=== PATIENT | female | born 1950 | race Caucasian/White ===

== ENCOUNTER 2023-06-15 18:30 | Emergency (ER) | payer MEDICARE, OTHER ==
[2023-06-15] MEDS ORDERED: Sodium Chloride 0.9% 10 ML Syringe FLUSH PRN (18:37)
[2023-06-15] MEDS ORDERED: Labetalol 20 MG/4 ML Syringe IVPUSH ONE (18:40)
[2023-06-15] MEDS ORDERED: Ondansetron 4 MG/2 ML SDV IVPUSH PRN (18:40)
[2023-06-15 18:44] LABS: BASOPHILS ABSOLUTE AUTO 0.04 K/uL (0.00-0.20); BASOPHILS PERCENT AUTO 0.5 % (0.0-2.0); EOSINOPHILS ABSOLUTE AUTO 0.15 K/uL (0.00-0.50); EOSINOPHILS PERCENT AUTO 1.7 % (0.0-5.0); HEMATOCRIT 40.3 % (34.0-46.0); HEMOGLOBIN 13.6 g/dL (11.7-15.5); LYMPHOCYTES ABSOLUTE AUTO 2.31 K/uL (0.50-3.50); LYMPHOCYTES PERCENT AUTO 26.1 % (10.0-50.0); MEAN CORPUSCULAR HEMOGLOBIN 31.3 pg (28.2-33.3); MEAN CORPUSCULAR HGB CONC 33.7 g/dL (31.7-36.0); MEAN CORPUSCULAR VOLUME 92.6 fL (84.0-98.0); MONOCYTES PERCENT AUTO 7.9 % (2.0-14.0); NEUTROPHILS ABSOLUTE AUTO 5.66 K/uL (1.40-7.00); NEUTROPHILS PERCENT AUTO 63.8 % (45.0-80.0); PLATELET COUNT,PLT 243 K/uL (150-350); RED BLOOD CELL COUNT 4.35 M/uL (3.77-5.09); RED CELL DISTRIBUTION WIDTH 12.8 % (11.2-14.1); WHITE BLOOD CELL COUNT,WBC 8.9 K/uL (4.0-10.2)
[2023-06-15] MEDS ORDERED: Sodium Chloride 0.9% 500 ML IV ONE (18:44)
[2023-06-15 19:10] LABS: ALANINE AMINOTRANSFERASE,ALT 30 U/L (12-78); ALBUMIN 4.1 g/dL (3.4-5.0); ALKALINE PHOSPHATASE 65 IU/L (46-116); ASPARTATE AMNIOTRANSFERASE,AST 29 U/L (15-37); BILIRUBIN TOTAL 0.2 mg/dL (0.2-1.0); BLOOD UREA NITROGEN,BUN 20 mg/dL (7-18); CALCIUM 9.3 mg/dL (8.5-10.1); CARBON DIOXIDE,CO2 29.4 mmol/L (21.0-32.0); CHLORIDE,CL 103 mmol/L (98-107); CREATINE KINASE,CK 336 U/L (26-308); CREATININE 0.91 mg/dL (0.51-1.17); GLUCOSE RANDOM 166 mg/dL (70-99); POTASSIUM,K 3.4 mmol/L (3.5-5.1); PROTEIN TOTAL,TP 7.5 g/dL (6.4-8.2); SODIUM,NA 141 mmol/L (136-145)
[2023-06-15 19:18] LABS: ESTIMATED GFR 66 mL/min (>=60)
[2023-06-15] MEDS ORDERED: Metoprolol Tartrate 25 MG Tab PO ONE (19:35)
[2023-06-15 20:42] VITALS: BP 119/88; PULSE 100
== END 2023-06-15 20:20 | disposition home or self-care (01) ==
LOC: LL.ED 18:30
DX: I48.91 Unspecified atrial fibrillation (principal); E78.00 Pure hypercholesterolemia, unspecified; M19.90 Unspecified osteoarthritis, unspecified site; Z79.82 Long term (current) use of aspirin; Z79.899 Other long term (current) drug therapy
CPT/HCPCS: 36415; 71045; 80053; 82550; 84484; 85025; 93005; 93010; 96374; 99284; 99285-25; A9270-GY; J3490; J7030

== ENCOUNTER 2024-03-30 12:58 | Emergency (ER) | payer MEDICARE, OTHER ==
[2024-03-30 13:14] LABS: BASOPHILS ABSOLUTE AUTO 0.03 K/uL (0.00-0.20); BASOPHILS PERCENT AUTO 0.5 % (0.0-2.0); EOSINOPHILS PERCENT AUTO 1.7 % (0.0-5.0); HEMATOCRIT 36.9 % (34.0-46.0); HEMOGLOBIN 12.2 g/dL (11.7-15.5); LYMPHOCYTES ABSOLUTE AUTO 1.69 K/uL (0.50-3.50); LYMPHOCYTES PERCENT AUTO 28.2 % (10.0-50.0); MEAN CORPUSCULAR HEMOGLOBIN 31.4 pg (28.2-33.3); MEAN CORPUSCULAR HGB CONC 33.1 g/dL (31.7-36.0); MEAN CORPUSCULAR VOLUME 95.1 fL (84.0-98.0); MONOCYTES ABSOLUTE AUTO 0.52 K/uL (0.00-1.00); MONOCYTES PERCENT AUTO 8.7 % (2.0-14.0); NEUTROPHILS ABSOLUTE AUTO 3.66 K/uL (1.40-7.00); NEUTROPHILS PERCENT AUTO 60.9 % (45.0-80.0); PLATELET COUNT,PLT 256 K/uL (150-350); RED BLOOD CELL COUNT 3.88 M/uL (3.77-5.09); RED CELL DISTRIBUTION WIDTH 12.8 % (11.2-14.1)
[2024-03-30 13:18] LABS: APPEARANCE,URINE CLEAR; BILIRUBIN,URINE NEGATIVE (NEGATIVE); COLOR,URINE YELLOW; GLUCOSE,URINE NEGATIVE (NEGATIVE); KETONES,URINE NEGATIVE (NEGATIVE); LEUKOCYTE ESTERASE,URINE SMALL (NEGATIVE); NITRITE,URINE NEGATIVE (NEGATIVE); OCCULT BLOOD,URINE TRACE-INTACT (NEGATIVE); PH,URINE 5.5 (5.0-9.0); PROTEIN,URINE NEGATIVE (NEGATIVE); UROBILINOGEN,URINE 0.2 E.U./dL (0.2-1.0)
[2024-03-30 13:26] LABS: BACTERIA,URINE MANY /HPF (NONE TO FEW); EPITHELIAL CELLS,URINE FEW /LPF; RBC,URINE 0-5 /HPF; WBC,URINE 40-50 /HPF
[2024-03-30 13:28] LABS: BLOOD UREA NITROGEN,BUN 16 mg/dL (7-18); CALCIUM 8.8 mg/dL (8.5-10.1); CHLORIDE,CL 104 mmol/L (98-107); GLUCOSE RANDOM 96 mg/dL (70-99); POTASSIUM,K 3.8 mmol/L (3.5-5.1); SODIUM,NA 141 mmol/L (136-145)
[2024-03-30 13:29] LABS: ESTIMATED GFR 77 mL/min (>=60)
[2024-03-30] MEDS ORDERED: Sodium Chloride 0.9% 10 ML Syringe FLUSH PRN (13:42)
[2024-03-30] MEDS ORDERED: Take Home: Nitrofurantoin Monohydrate/Macrocrystalline 100 MG, 6 Cap Pack PO ONE (13:44)
[2024-03-30] MEDS ORDERED: Take Home: Phenazopyridine 95 MG Tab, 4 Tab Pack PO ONE (13:44)
[2024-03-30] MEDS: cefTRIAXone 2 GM in Sodium Chloride 0.9% 100 ML IV ONE (13:55)
[2024-03-30 14:35] VITALS: BP 146/85; PULSE 65
[2024-03-30] MEDS ORDERED: Phenazopyridine 95 MG Tab PO SCH (18:30)
== END 2024-03-30 15:10 | disposition home or self-care (01) ==
LOC: LL.ED 12:58
DX: N39.0 Urinary tract infection, site not specified (principal); Z79.82 Long term (current) use of aspirin; Z79.899 Other long term (current) drug therapy; Z90.710 Acquired absence of both cervix and uterus
CPT/HCPCS: 36415; 80048; 81001; 85025; 87086; 87088; 87186; 96365; 99283-25; J0696; J3490